=== PATIENT | female | born 1970 | race Asian ===

== ENCOUNTER 2019-10-28 12:25 | Outpatient (CLI) | payer MEDICAID | END 2019-10-28 12:26 | disposition critical access hospital (66) | LOC: EMS 12:25 | PROVIDERS: ATTEND Surgery | DX: M54.5 Low back pain (principal) | CPT/HCPCS: A0425; A0429; A0999 ==

== ENCOUNTER 2019-10-28 13:00 | Emergency (ER) | payer MEDICAID ==
--- NOTE | 2019-10-28 13:27 | ED Physician Documentation ---
PD HPI BACK PAIN - Stated complaint Stated Complaint: BACK PAIN - Chief complaint Chief Complaint: Back Pain - History obtained from History obtained from: Patient, Family - History of Present Illness Timing - onset: How many days ago (3) Timing - duration: Days (3) Timing - details: Gradual onset Pain level max: 8 Pain level now: 8 Location: Lower, Right, Left Quality: Pain, Spasm, Similar to prior episodes Associated symptoms: No: Fever, Weakness, Numbness, Incontinent of urine, Unable to urinate, Hematuria, Incontinent of stool Improves with: Rest Worsened by: Movement Contributing factors: Lifting (states was moving heavy objects around her property) Recently seen: Not recently seen - Additional information Additional information: 49-year-old female presents to the emergency department complaint of low back pain. This is intermittent, worse with movement and better with rest. She states she has episodes where her back spasms and the muscles feel like the seize up. She has taken ibuprofen without relief. No loss of bowel or bladder control. No IV drug use. No cancer history. No fevers. No fall. No numbness or tingling. No weakness in her legs. Review of Systems Constitutional: denies: Fever, Chills Respiratory: denies: Cough GI: denies: Nausea, Vomiting, Diarrhea : denies: Dysuria, Frequency, Hesitancy, Incontinent, Now EGA Skin: denies: Rash Musculoskeletal: denies: Neck pain Neurologic: denies: Focal weakness, Numbness PD PAST MEDICAL HISTORY - Past Medical History Past Medical History: No - Present Medications Home Medications: Ambulatory Orders Medication Instructions Recorded Confirmed Cyclobenzaprine [Flexeril] 10 mg PO TID PRN #20 tablet 10/28/19 Meloxicam [Mobic] 7.5 mg PO BID PRN #20 tablet 10/28/19 Methylprednisolone [Medrol] 4 mg PO DAILY #1 tab.ds.pk 10/28/19 - Allergies Allergies/Adverse Reactions: Allergies Allergy/AdvReac Type Severity Reaction Status Date / Time No Known Drug Allergies Allergy Verified 10/28/19 13:34 PD ED PE NORMAL - Vitals Vital signs reviewed: Yes - General General: Alert and oriented X 3, No acute distress, Well developed/nourished - HEENT HEENT: Moist mucous membranes - Neck Neck: Supple, no meningeal sign - Cardiac Cardiac: RRR, Strong equal pulses - Respiratory Respiratory: No respiratory distress, Clear bilaterally - Abdomen Abdomen: Soft, Non tender, Non distended - Back Back: No spinal TTP (Mild midline tenderness palpation low lumbar. Mainly bilateral paraspinal Spasm low lumbar) - Derm Derm: Warm and dry - Extremities Extremities: No edema, No calf tenderness / cord, Other (Normal bilateral lower extremity patellar and ankle jerk reflexes. Normal great toe extension bilaterally. no saddle anesthesia) - Neuro Neuro: Alert and oriented X 3, No motor deficit, No sensory deficit - Psych Psych: Normal mood, Normal affect Results - Vitals Vitals: Vital Signs - 24 hr 10/28/19 13:10 Temperature 36.8 C Heart Rate 77 Respiratory 14 Rate Blood Pressure 120/63 O2 Saturation 100 Oxygen O2 Source Room air - Labs Labs: Laboratory Tests 10/28/19 13:25 Urine Color YELLOW Urine Clarity CLEAR Urine pH 7.0 Ur Specific Gilbert 1.020 Urine Protein NEGATIVE Urine Glucose (UA) NEGATIVE Urine Ketones NEGATIVE Urine Occult Blood NEGATIVE Urine Nitrite NEGATIVE Urine Bilirubin NEGATIVE Urine Urobilinogen 0.2 (NORMAL) Ur Leukocyte Esterase NEGATIVE Ur Microscopic Review NOT INDICATED Urine Culture Comments NOT INDICATED Urine HCG, Qual NEGATIVE - Rads (name of study) L spine Radiology: Prelim report reviewed, EMP read contemporaneously, See rad report (No acute bony abnormality) PD MEDICAL DECISION MAKING - ED course Complexity details: reviewed results, re-evaluated patient, considered differential (Back pain differential), d/w patient, d/w family ED course: Patient with back spasm. Feels better after Toradol and Valium. Will prescribe Mobic and Flexeril for home. We will also place her on a Medrol Dosepak. No evidence of cauda equina, epidural abscess. No neurological deficits. Patient counseled regarding signs and symptoms for which I believe and urgent re- evaluation would be necessary. Patient with good understanding of and agreement to plan and is comfortable going home at this time This document was made in part using voice recognition software. While efforts are made to proofread this document, sound alike and grammatical errors may occur. Departure - Departure Disposition: 01 Home, Self Care Clinical Impression: Back muscle spasm Condition: Good Instructions: ED Spasm Back No Trauma Follow-Up: Your,doctor in 1 week [Other] Prescriptions: Cyclobenzaprine [Flexeril] 10 mg PO TID PRN #20 tablet PRN Reason: Spasms Methylprednisolone [Medrol] 4 mg PO DAILY #1 tab.ds.pk Meloxicam [Mobic] 7.5 mg PO BID PRN #20 tablet PRN Reason: Pain Comments: Return if you worsen. Drink plenty of fluids and rest. Do not drive or operate heavy machinery while taking the Flexeril at home. Continue to gently stretch your back. This will take several days to fully recover, possibly up to a week or more.
[2019-10-28 13:37] LABS: BILIRUBIN,URINE NEGATIVE (NEGATIVE); GLUCOSE, URINE (UA) NEGATIVE (NEGATIVE); KETONES,URINE (UA) NEGATIVE (NEGATIVE); LEUKOCYTE ESTERASE, URINE NEGATIVE (NEGATIVE); NITRITE,URINE NEGATIVE (NEGATIVE); OCCULT BLOOD,URINE NEGATIVE (NEGATIVE); PROTEIN,URINE NEGATIVE (NEGATIVE); UROBILINOGEN,URINE 0.2 (NORMAL) E.U./dL (NORMAL)
[2019-10-28 13:42] LABS: CLARITY,URINE CLEAR (CLEAR); HCG UR QUAL NEGATIVE
[2019-10-28] MEDS: diazePAM INJ 5 MG/ML SYRINGE IVP STA (13:52)
[2019-10-28] MEDS: KETOROLAC 30 MG/ML VIAL IVP STA (13:52)
[2019-10-28] MEDS: DEXAMETHASONE 10 MG/ML VIAL IVP STA (13:52)
--- NOTE | 2019-10-28 14:39 | XRAY Report ---
PROCEDURE: Lumbar Spine 2 View INDICATIONS: back pain, non-traumatic TECHNIQUE: 2 views of the lumbar spine were acquired. COMPARISON: None. FINDINGS: Bones: 5 [id number] vertebrae are present. There is normal bony alignment. No acute vertebral body compression fractures. Mild lower lumbar spondylitic changes. No suspicious bony lesions. Soft tissues: Overlying bowel gas pattern is normal. No suspicious soft tissue calcifications. IMPRESSION: Lumbar spine without acute radiographic abnormalities. Mild lower lumbar spondylosis. Reviewed by: Jerzy Meehan MD on 10/28/2019 2:38 PM PDT Approved by: Jerzy Meehan MD on 10/28/2019 2:38 PM PDT Station ID: [id number]
[2019-10-28] MEDS: CYCLOBENZAPRINE 10 MG TABLET PO STA (15:00)
[2019-10-28 15:25] VITALS: BP 118/60
== END 2019-10-28 15:26 | disposition home or self-care (01) ==
LOC: ED 13:00
DX: M62.830 Muscle spasm of back (principal); M47.816 Spondylosis without myelopathy or radiculopathy, lumbar region
CPT/HCPCS: 72100; 81003; 81025; 96374; 99284; A9270; 81001; 87086

== ENCOUNTER 2021-12-13 07:58 | Outpatient (CLI) | payer BC ==
--- NOTE | 2021-12-14 12:12 | Mammography Report ---
BILATERAL DIGITAL SCREENING MAMMOGRAM 3D/2D WITH EXAGGERATED CC: 12/13/2021 CLINICAL: Routine screening. Baseline exam. No prior exams were available for comparison. Both breasts are extremely dense, which lowers the sensitivity of mammography (category d />75% glan dular tissue). No significant masses, calcifications, or other findings are seen in either breast. IMPRESSION: NEGATIVE There is no mammographic evidence of malignancy. A 1 year screening mammogram is recommended. This exam was interpreted at Station ID: [id number]. NOTE: For mammograms, a report in lay terms will be sent to the patient. Approximately 15% of breast malignancies will not be visualized mammographically. In the management of a palpable breast mass, a negative mammogram must not discourage biopsy of a clinically suspicious lesion. Electronically Signed By: Jerzy poole/bri:12/13/2021 23:25:32 ACR BI-RADS Category 1: Negative 3341F PARENCHYMAL PATTERN: (VD) - The breast(s) demonstrate(s) extremely dense parenchyma, limiting the sen sitivity of mammography. BI-RADS CATEGORY: (1) - 1 RECOMMENDATION: (ANNUAL) - Recommend routine annual screening mammography. 20221214 1 year screening LATERALITY: (B)
== END 2021-12-13 07:59 | disposition home or self-care (01) ==
LOC: DI.S 07:58
PROVIDERS: ATTEND Nurse Practitioner Family
DX: Z12.31 Encounter for screening mammogram for malignant neoplasm of breast (principal)

== ENCOUNTER 2021-12-19 09:47 | Outpatient (CLI) | payer BC ==
--- NOTE | 2021-12-19 11:57 | Ultrasound Report ---
PROCEDURE: Abdomen Limited INDICATIONS: Elevated liver enzymes TECHNIQUE: Real-time focused scanning was performed of the abdomen, with image documentation. COMPARISON: None. FINDINGS: Normal hepatic parenchymal echogenicity, echotexture, and contour. No focal hepatic mass. There are two simple cysts measuring up to 1 cm noted in the right hepatic lobe. No intrahepatic or e xtrahepatic biliary ductal dilatation. Gallbladder normal. No pancreatic ductal dilatation. Pancreati c parenchyma demonstrates normal appearance. Right kidney normal. No shadowing calculus or hydronephr osis. IMPRESSION: No significant abnormality. Reviewed by: Amadeo Smiley MD on 12/19/2021 11:56 AM PDT Approved by: Amadeo Smiley MD on 12/19/2021 11:56 AM PDT Station ID: [id number]
== END 2021-12-19 09:48 | disposition home or self-care (01) ==
LOC: DI 09:47
PROVIDERS: ATTEND Nurse Practitioner Family
DX: R74.01 Elevation of levels of liver transaminase levels (principal)

== ENCOUNTER 2022-01-18 07:54 | Day surgery (SDC) | payer BC ==
[2022-01-18] MEDS ORDERED: LACTATED RINGERS 1,000 ML IV ONE ×2 (08:25→10:00)
[2022-01-18] MEDS ORDERED: PROPOFOL 200 MG/20 ML VIAL IVP ONE (08:42)
--- NOTE | 2022-01-18 08:49 | ANESTHESIA ---
Pre-Anesthesia VS, & Labs - Diagnosis screening, constipation - Procedure colonoscopy Vital Signs: Temp Pulse Resp BP Pulse Ox O2 Flow Rate 36.4 C L 85 17 116/70 100 01/18/22 08:11 01/18/22 08:11 01/18/22 08:11 01/18/22 08:11 01/18/22 08:11 Height: 5 ft 8 in Weight (kg): 59.7 kg Body Mass Index: 20.0 BMI Classification: Normal - NPO >8 hours - Is Patient ?: No Home Medications and Allergies Allergies/Adverse Reactions: Allergies Allergy/AdvReac Type Severity Reaction Status Date / Time No Known Drug Allergies Allergy Verified 10/28/19 13:34 Anes History & Medical History - Anesthetic History Anesthesia Complications: reports: No previous complications Family history of Anesthesia Complications: Denies Family history of Malignant Hyperthermia: Denies - Medical History Cardiovascular: reports: None Pulmonary: reports: None Gastrointestinal: reports: GERD Urinary: reports: None Musculoskeletal: reports: None Endocrine/Autoimmune: reports: None Skin: reports: None - Surgical History Gynecologic: reports: section, Tubal ligation Exam General: Alert, Oriented x3, Cooperative Dental: WNL Mouth Openin Fingerbreadth Neck Mobility: Normal Mallampati classification: I Thyromental Distance: 4-6 cm Respiratory: Lungs clear Cardiovascular: Regular rate Plan Anesthesia Type: General Consent for Procedure(s) Verified and Reviewed: Yes Code Status: Attempt Resuscitation ASA classification: 1-Healthy patient Is this case an emergency?: No
[2022-01-18] MEDS ORDERED: ePHEDrine 50 MG/ML VIAL IVP ONE (09:51)
[2022-01-18 10:44] LABS: BASOPHILS % (AUTO) 0.9 %; EOSINOPHILS # (AUTO) 0.2 10^3/uL (0.0-0.7); EOSINOPHILS % (AUTO) 3.9 %; HCT - HEMATOCRIT 42.5 % (37.0-47.0); HGB - HEMOGLOBIN 13.7 g/dL (12.0-16.0); LYMPHOCYTES # (AUTO) 1.1 10^3/uL (1.5-3.5); LYMPHOCYTES % (AUTO) 24.6 %; MEAN CORPUSCULAR HEMOGLOBIN 28.9 pg (27.0-31.0); MEAN CORPUSCULAR HGB CONC 32.2 g/dL (32.0-36.0); MEAN CORPUSCULAR VOLUME 89.7 fL (81.0-99.0); MEAN PLATELET VOLUME 9.4 fL (7.9-10.8); MONOCYTES # (AUTO) 0.4 10^3/uL (0.0-1.0); MONOCYTES % (AUTO) 8.9 %; NEUTROPHILS # (AUTO) 2.9 10^3/uL (1.5-6.6); NEUTROPHILS % (AUTO) 61.5 %; PLT - PLATELET COUNT 204 10^3/uL (130-450); RED BLOOD COUNT 4.74 10^6/uL (4.20-5.40); RED CELL DISTRIBUTION WIDTH 13.1 % (12.0-15.0); WHITE BLOOD COUNT 4.6 x10^3/uL (4.8-10.8)
[2022-01-18 10:54] LABS: CREATININE 0.7 mg/dL (0.4-1.0)
[2022-01-18] MEDS ORDERED: iohexoL-300 100 ML VIAL ONE (10:56)
[2022-01-18] MEDS ORDERED: iohexoL-300 100 ML VIAL IVP ONE (11:29)
[2022-01-18 11:31] VITALS: BP 115/72
--- NOTE | 2022-01-18 11:35 | CT Report ---
PROCEDURE: CT abdomen pelvis with contrast INDICATIONS: Known Rectosigmoid Malignancy. Stat reading. CONTRAST: 100mL Omni 300 TECHNIQUE: After the administration of contrast, 5 mm thick sections acquired from the diaphragms to the sym physis. 5 mm thick coronal and sagittal reformats were acquired. For radiation dose reduction, the following was used: automated exposure control, adjustment of mA and/or kV according to patient size . COMPARISON: None. FINDINGS: Image quality: Excellent. ABDOMEN: Lung bases: Lung bases are clear. Heart size is normal. Solid organs: 7 mm hypodensity in the peripheral right hepatic lobe. Remainder of the liver unremarka ble. Gallbladder Biliary system is non dilated. Pancreas enhances normally. No adrenal nodule s. Kidneys demonstrate normal size and enhancement, without hydronephrosis. Peritoneum and bowel: Bowel loops demonstrate normal wall thickness and caliber. No free fluid or a ir. Mild rectal irregular wall thickening 1.7 cm perirectal nodule may reflect local adenopathy. Nodes and vessels: No retroperitoneal or mesenteric adenopathy by size criteria. Aorta and inferior vena cava are normal in size. Miscellaneous: No ventral hernias. PELVIS: Genitourinary: Bladder wall thickness is normal. Miscellaneous: No inguinal hernias or adenopathy. Bones: No suspicious bony lesions. No vertebral body compression fractures. IMPRESSION: Irregular rectal wall thickening and probable perirectal adenopathy, consistent with given history Right hepatic 7 mm hypodensity probably reflects a cyst. Consider ultrasound confirmation Reviewed by: Sacha Prescott MD on 01/18/2022 10:33 AM [facility] Approved by: Sacha Prescott MD on 01/18/2022 10:33 AM [facility] Station ID: [id number]
--- NOTE | 2022-01-18 11:42 | CT Report ---
PROCEDURE: CT chest with contrast INDICATIONS: Known Rectosigmoid Malignancy. Stat reading CONTRAST:100mL Omni 300 TECHNIQUE: After the administration of intravenous contrast, 1 mm axial images were acquired from the pulmonary apices through the posterior costophrenic angles. Axial 5 mm soft tissue kernel reconstructions were performed as well as 8 mm axial MIP and coronal and sagittal 5 mm reformations. For radiation dose reduction, the following was used: automated exposure control, adjustment of mA and/or kV according to patient size. COMPARISON: None. FINDINGS: Image quality: Excellent. Lungs and pleura: 4 mm right lower lobe solid nodule on image 3/201. A 7 mm solid nodule right middle lobe on image 3/212. A spiculated nodule in the left lower lobe on image 3/263 is noted. No focal in filtrate. Pleural spaces are clear without pleural effusion or pneumothorax Mediastinum: Heart size is normal. No pericardial effusion. No mediastinal or hilar adenopathy by size criteria. Thoracic aorta and central pulmonary arteries are normal in size. Esophagus is jessica l in caliber. No hiatal hernia. Bones and chest wall: No suspicious bony lesions. No vertebral body compression fractures. No axil gianni or supraclavicular adenopathy by size criteria. The thyroid is normal in size and there are no incidental findings.. IMPRESSION: 1. Three subcentimeter pulmonary nodules are suspicious for metastatic disease. Consider either PET/C T or three-month follow-up. Reviewed by: Sacha Prescott MD on 01/18/2022 10:40 AM [facility] Approved by: Sacha Prescott MD on 01/18/2022 10:40 AM [facility] Station ID: [id number]
--- NOTE | 2022-01-18 16:15 | ANESTHESIA POST OP EVALUATION ---
Anesthesia Post Eval - Post Anesthesia Eval Vitals: Last Vital Signs Temp 36.6 C 01/18/22 11:30 Pulse 76 01/18/22 11:30 Resp 18 01/18/22 11:30 BP 115/72 01/18/22 11:30 Pulse Ox 100 01/18/22 11:30 O2 Flow Rate CV Function Including HR & BP: Stable Pain Control: Satisfactory Nausea & Vomiting: Negative Mental Status: Baseline Respiratory Status: Airway Patent Hydration Status: Satisfactory Anesthesia Complications: None
== END 2022-01-18 07:55 | disposition home or self-care (01) ==
LOC: SDS 07:54
PROVIDERS: ATTEND Surgery
PROC: 0DBN8ZX Excision of Sigmoid Colon, Via Natural or Artificial Opening Endoscopic, Diagnostic (ICD-10-PCS; principal; 2022-01-18 09:00)
DX: Z12.11 Encounter for screening for malignant neoplasm of colon (principal); C19 Malignant neoplasm of rectosigmoid junction
CPT/HCPCS: 36415; 45380; 71260; 74177; 82378; 82565; 85025; J7120; Q9967